=== PATIENT | female | born 1965 | race Caucasian/White ===

== ENCOUNTER 2016-10-27 12:26 | Observation (INO) | payer BC ==
--- NOTE | ~2016-10-27 | ST ---
Unit #: [id number] #: [id number] Patient: MARCO MOSQUEDA [id number] [address] [place], [place] [address] [id number] I MR#: [id number] NAME: MARCO MOQSUEDA : 1965 SEX: F STUDY DATE/TIME: UNIT: C5B ROOM: 550 STUDY DESCRIPTION: ECG portion of stress test Attending Physician: Cat Allison M.D. Primary Care Physician: Ant Carter M.D. CARDIOLOGY REPORT PROCEDURE PERFORMED ECG portion of nuclear stress test. INDICATION Chest discomfort. SUMMARY Patient underwent nuclear stress test. Patient's resting heart rate is 90 beats per minute, which increased to 122 beats per minute with Lexiscan infusion, representing 72% of the maximal age-predicated heart rate. Patient's resting blood pressure 131/79 mmHg, which increased to 176/84 mmHg with Lexiscan infusion. Patient's resting ECG shows normal sinus rhythm with isolated PVC. Patient's stress ECG shows sinus tachycardia with preserved ST segments. There is no ventricular or supraventricular ectopy noted with Lexiscan infusion. There are no pauses noted. CONCLUSIONS 1. Negative ECG portion of the Lexiscan study for ischemia. 2. Perfusion imaging to be dictated separately. NOTE: Patient initially tried to exercise, but treadmill Cardiolite stress test was changed to Lexiscan, as patient got fatigued. The treadmill portion is dictated below. Patient's resting blood pressure was 131/79 mmHg. I do not have the peak blood pressure reading during exercise. Patient's heart rate was 76 beats per minute. Patient's resting ECG shows isolated PVCs. With walking on Carl treadmill, patient exercised up to 4 minutes and 28 seconds, and the test was stopped. Patient's ECG shows sinus tachycardia with preserved ST segments. There was no ventricular or supraventricular ectopy noted at that time. Patient achieved 79% of the maximum age-predicted heart rate with exercise. Subsequently, the test was changed to Lexiscan infusion as has been dictated above. CONCLUSION 1. Poor exercise tolerance. 2. Submaximal treadmill Cardiolite stress test. Therefore, changed to Lexiscan. Do not have the blood pressure reading post exercise to comment on the hemodynamic response to exercise. Unit #: [id number] #: [id number] Patient: MARCO MOSQUEDA Dictated by... Tobias Christopher/mark TD: 10/28/2016 15:02 JOB #: [id number] CARDIOLOGY REPORT Page 1 of 1 X MARIAM GONZALES MD CARDIOLOGY REPORT
--- NOTE | ~2016-10-27 | DS ---
Unit #: [id number] #: [id number] Patient: MARCO MOSQUEDA [id number] [address] [place], [place] [address] [id number] I MR#: [id number] NAME: MARCO MOSQUEDA ROOM: 550 Age: 51 Sex: F Admission Date: 10/27/2016 : 1965 Discharge Date: 10/28/2016 Attending Physician: Cat Allison M.D. Primary Care Physician: Ant Carter M.D. DISCHARGE SUMMARY ADMISSION DIAGNOSES 1. Chest discomfort. 2. Dyslipidemia. 3. Probable obstructive sleep apnea. 4. Obesity. 5. ETOH abuse. Ms. Mosqueda is a 51-year-old white female who was admitted with chest discomfort. Myocardial infarction was ruled out with five negative troponins. Cholesterol profile was obtained. Total cholesterol 171, triglycerides 427, HDL 34, LDL not obtained. She underwent Cardiolite stress testing which was negative for ischemia. She also underwent ultrasound of the gallbladder which was normal. She had normal sinus rhythm through the night. She had some pauses noted on the monitor as well as observed apnea. Dr. Fernandes consulted, saw the patient prior to discharge and she will follow up with him in two weeks. She will follow up with her primary care physician in two weeks. She has been discharged home on her home medications of Flonase Allergy spray, two sprays daily, Claritin 10 mg daily. She has received a prescription for Protonix 40 mg daily and fish oil 2 g twice daily. Her primary care physician is Dr. Ant Carter. Dictated by... Loree Vidal A.P.R.N. for Minor Flowers M.D. ARNOLD/trung TD: 10/30/2016 10:21 JOB #: [id number] DISCHARGE SUMMARY Page 1 of 1 X X DISCHARGE SUMMARY
--- NOTE | ~2016-10-27 | HP ---
Unit #: [id number] #: [id number] Patient: MARCO MOSQUEDA [id number] [address] [place], [place] [address] [id number] I MR#: [id number] NAME: MARCO MOSQUEDA ROOM: 550 Age: 51 Sex: F Admission Date: 10/27/2016 : 1965 Attending Physician: Cat Allison M.D. Primary Care Physician: Ant Carter M.D. HISTORY AND PHYSICAL HISTORY OF PRESENT ILLNESS This is a 51-year-old white female who presented to the emergency room for evaluation of chest pain. She states on Sunday, after she ate breakfast and swallowed her food, she began to have substernal chest tightness with pressure that was nonradiating to the neck, arm or jaw. She had no associated dyspnea, diaphoresis, nausea or vomiting. She felt that if she would burp it would make it feel better. However, belching made her chest pain worse. She had no alleviating factors. Every time she ate she had reoccurrence of chest pain. She states she is usually active without any symptoms. On Sunday she played with her grandchildren and walked around fairly often without chest pain. She is able to walk up and down stairs without symptoms. She denies a history of hypertension, hyperlipidemia or diabetes. She does have risk factors for ischemic heart disease that include nicotine abuse and family history of premature coronary artery disease. She had a regular treadmill test in 2007 which was normal. Presenting electrocardiogram shows no acute ischemic changes. Troponin was initially negative. PAST MEDICAL HISTORY 1. Exercise stress test 02/25/2008 showed no ischemia. 2. Obesity. 3. Binge ETOH use. 4. Nicotine abuse. PAST SURGICAL HISTORY 1. Hysterectomy. 2. Tubal ligation. 3. Removal of vaginal polyps. 4. Left arm surgery. 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 She smokes one to two packs of cigarettes daily since age 15. She smokes marijuana on occasion. She drinks on Sunday and Sunday six beers a night. FAMILY HISTORY Father is currently living and well and in his 70s. When he was in his 50s he had a stent placed with subsequent coronary artery bypass surgery. Mother has hypertension, but no coronary artery disease. ALLERGIES Ibuprofen and neomycin. The patient has been told not to take aspirin because of her reaction to ibuprofen. Unit #: [id number] #: [id number] Patient: MARCO MOSQUEDA HOME MEDICATIONS 1. Loratadine 10 mg daily. 2. Flonase 2 sprays each nostril daily. REVIEW OF SYSTEMS CONSTITUTIONAL: Negative for fever or chills. Reports no weight gain or weight loss. HEENT: Negative for headache or dizziness. Reports difficulty with swallowing. CARDIOVASCULAR: Has chest pain described in history of present illness. Denies palpitations. No paroxysmal nocturnal dyspnea or orthopnea. No syncope or near syncope. RESPIRATORY: Negative for dyspnea, cough or hemoptysis. GASTROINTESTINAL: Positive for abdominal discomfort. No nausea or vomiting. EXTREMITIES: Negative for lower extremity edema. PHYSICAL EXAMINATION GENERAL: This is a pleasant, obese, 51-year-old white female who is in no acute respiratory distress. VITALS: Blood pressure 125/90, heart rate 80, temperature 97.8, BMI 46. NECK: Trachea midline. No thyromegaly or lymphadenopathy. No jugular venous distension. LUNGS: Diminished breath sounds without rales, rhonchi or wheezes. HEART: S1 and S2. No murmurs, rubs or clicks. Regular rate and rhythm. ABDOMEN: Soft, nontender, with bowel sounds present. EXTREMITIES: Without leg edema. SKIN: Warm and dry. NEUROLOGIC: Awake, alert and oriented. There is no focal weakness. DIAGNOSTIC STUDIES IMAGING: Chest x-ray shows no active disease. LABORATORY: Glucose 131, BUN 14, creatinine 0.8, sodium 138, potassium 4.0, troponin less than 0.05 times 2. White blood cell count 7.1, hemoglobin 14.3, hematocrit 43.7, platelets 217. CARDIOVASCULAR: Electrocardiogram shows normal sinus rhythm with occasional premature ventricular complex. No acute findings. ASSESSMENT 1. Atypical chest pain. 2. Dysphagia. 3. Abdominal pain, questionable etiology. 4. Obesity. 5. Nicotine abuse. 6. ETOH abuse. PLAN 1. The patient's chest pain is atypical for significant ischemic heart disease. She does have minimal risk factors. Will proceed with exercise Cardiolite stress test if repeat troponin is negative. 2. Will have GI to see the patient for dysphagia as an outpatient. 3. Obtain ultrasound of the gallbladder to rule out gallbladder disease. 4. Encourage the patient to quit smoking and drinking. 5. If stress test is normal, the patient will be discharged home. Unit #: [id number] #: [id number] Patient: MARCO MOSQUEDA Dictated by Gera Neves A.P.R.N. for Cat Allison M.D. AEP/gz TD: 10/27/2016 16:02 JOB #: [id number] CC: [facility] Ant Carter M.D. HISTORY AND PHYSICAL Page 1 of 1 X Gera Neves APRN X HISTORY AND PHYSICAL
--- NOTE | ~2016-10-27 | TH ---
Unit #: [id number] #: [id number] Patient: MARCO MOSQUEDA [id number] [address] [address] [id number] I MR#: [id number] NAME: MARCO MOSQUEDA : 1965 SEX: F STUDY DATE/TIME: 10/28/2016 UNIT: C5B ROOM: 550 STUDY DESCRIPTION: Attending Physician: Cat Allison M.D. Primary Care Physician: Ant Carter M.D. CARDIOLOGY REPORT EXAM Nuclear stress test. INDICATION Chest discomfort. SUMMARY Patient underwent nuclear stress test. She received a resting dose of 11.37 mCi and a stress dose of 31.1 mCi. On gated imaging, patient appears to have normal wall motion with a preserved ejection fraction. Patient's LVEF is 68%. On perfusion imaging, comparing rest and stress images, there appears to be no reversible perfusion defects. CONCLUSION 1. No obvious ischemia. 2. Preserved ejection fraction. 3. ECG portion to be dictated separately. 1. Dictated by... Mariam Gonzales M.D. MO/am TD: 10/29/2016 21:28 JOB #: [id number] CARDIOLOGY REPORT Page 1 of 1 X MARIAM GONZALES MD CARDIOLOGY REPORT
--- NOTE | ~2016-10-27 | BMI ---
[facility] Nutrition Therapy DATE: 10/28/16 Patient: MARCO MOSQUEDA Physician: ATTPRE Address: [address] [place] [address] Room/Bed: [address] [place] [address], Zip: [place] [address] Admit Date: 10/27/16 Date of : [birth year] Height: 5 6 Weight: 159 72.2 HIGH BMI NOTE: DX: PATIENT IS A 51 Y/O FEMALE ADMITTED FOR CHEST PAIN ANTHROPOMETRICS: HT: 66", WT: 285#, BMI: 46 DIET: ADMITTED ON HEART HEALHTY, CURRENTLY NPO RECOMMENDATIONS: ONCE MEDICALLY FEASIBLE RECOMMEND CONTINUING HEART HEALTHY DIET TO PROMOTE A STEADY WEIGHT LOSS TOWARDS A HEALTHY BMI OF 19-25 Respectfully, JANIA CONTEH RD, LD [facility] cc: client file
--- NOTE | ~2016-10-27 | US67 ---
[facility] A Service of [facility] RADIOLOGY TEXT RESULTS PATIENT: MARCO MOSQUEDA LOCATION: B 550-01 : [birth year] UNIT #: [id number] AGE: [address]: Cat Allison MD SEX: F ORDER DR: [id number] [facility] [address] [facility] [place], [place] [address] [id number] I MR#: [id number] Acc #: [id number] NAME: MARCO MOSQUEDA : 1965 SEX: F STUDY DATE/TIME: 10/28/2016 8:33 UNIT: [facility] ROOM: [facility] STUDY DESCRIPTION: US Gallbladder Attending Physician: Cat Allison M.D. Ordering Physician: Cat Allison M.D. Primary Care Physician: Ant Carter M.D. MEDICAL IMAGING REPORT This report is preliminary unless electronic signature is present EXAM Gallbladder ultrasound study dated 10/28/2016 COMPARISON Abdominal ultrasound study dated 02/10/2008. HISTORY Discomfort when eating along with chest pain since Sunday. FINDINGS Structural patel-scale analysis, color-Doppler flow analysis of the right upper quadrant of the abdomen was performed as per the protocol. Visualized portions of the pancreas does not demonstrate any significant abnormality. Entire pancreas is not seen. Liver measures 18.6 cm in greatest length and is slightly enlarged. There is diffuse increased echotexture of the liver. No intrahepatic biliary ductal dilatation or discrete well-defined mass is seen. Gallbladder is within normal limits. No wall thickening or gallstones. Gallbladder wall measures 2.5 mm. Common duct measures 2 mm. The anterior aspect of the tqm-fc-bblepjdf right kidney there is a 2.1 x 3.2 x 3.4 cm ISO to slightly hypoechoic lesion. No vascular flow is noted within it. The right kidney measures 10.8 cm in greatest length. No hydronephrosis or nephrolithiasis. IMPRESSION 1. There is mild hepatomegaly with diffuse increased echotexture suggestive of diffuse hepatic steatosis. It was also noted on the prior study from 2007. 2. There is an iso- to slightly hypoechoic exophytic mass in the anterior aspect of the cdp-iu-dtpncxmf right kidney. Given the lack of flow within it, it is probably not a solid mass. In this region, a cyst was noted on the prior ultrasound measuring 2.2 x 2.3 cm. Over the last 9 years it is slightly increased in size and probably STS. [facility] A Service of [facility] RADIOLOGY TEXT RESULTS PATIENT: MARCO MOSQUEDA LOCATION: [place] [address] : [birth year] UNIT #: [id number] AGE: [address]: Cat Allison MD SEX: F ORDER DR: hemorrhaged within it or it contains proteinaceous components. It is probably a complex cyst. 3. No cholelithiasis or acute cholecystitis. Dictated by... Bob Almanza M.D. THIS IS AN ELECTRONICALLY VERIFIED REPORT Bob Almanza M.D. at 10/30/2016 2:59 PM CPR/aa TD: 10/28/2016 12:23 JOB #: [id number] MEDICAL IMAGING REPORT Page 1 of 1 COPY
--- NOTE | ~2016-10-27 | EKG ---
PATIENT: MARCO MOSQUEDA UNIT #: [id number] Ventricular Rate: 73 BPM Atrial Rate: 73 BPM P-R Interval: 178 ms QRS Duration: 92 ms Q-T Interval: 394 ms QTC Calculation(Bezet): 434 ms P [place]: 46 degrees Calculated R [place]: -31 degrees Calculated T [place]: 59 degrees Diagnosis Line: Normal sinus rhythm Diagnosis Line: Left axis deviation Diagnosis Line: Abnormal ECG Diagnosis Line: When compared with ECG of 27-OCT-2016 11:19, Diagnosis Line: Premature ventricular complexes are no longer Diagnosis Line: Present Diagnosis Line: Confirmed by LUIS ANGEL MC MD ([id number]) on Diagnosis Line: 10/29/2016 8:49:01 AM INTERPRETING : MAMIE
--- NOTE | ~2016-10-27 | CR63 ---
[facility] A Service of [facility] RADIOLOGY TEXT RESULTS PATIENT: MARCO MOSQUEDA LOCATION: [facility] : 63 UNIT #: [id number] AGE: [address]: Rahul Reyes DO SEX: F ORDER DR: [id number] [facility] [address] [place], [place] [address] [id number] E MR#: [id number] Acc #: [id number] NAME: MARCO MOSQUEDA : 1965 SEX: F STUDY DATE/TIME: 10/27/2016 11:30 UNIT: [facility] ROOM: STUDY DESCRIPTION: CR Chest 2 View Attending Physician: Rahul Reyes D.O. Ordering Physician: Rahul Reyes D.O. Primary Care Physician: Ant Carter M.D. MEDICAL IMAGING REPORT This report is preliminary unless electronic signature is present EXAM Chest 2 views 10/27/2016 1130 hours HISTORY 51-year-old woman with 3-day history of chest pain and shortness of air, history of allergies. COMPARISON None. FINDINGS Upright PA and lateral views of the chest demonstrate normal heart size and a mildly tortuous aorta. The pulmonary vascularity is normal. The lungs are clear of acute densities. Benign calcified granulomata are present. There is no effusion. IMPRESSION Normal heart size with mildly tortuous aorta. Benign calcified granulomatous changes are present. The lungs are clear of acute densities. There is no effusion or pneumothorax. Dictated by... Ashwini Lara M.D. THIS IS AN ELECTRONICALLY VERIFIED REPORT Ashwini Lara M.D. at 10/27/2016 2:30 PM PATI/eloisa TD: 10/27/2016 13:20 JOB #: [id number] MEDICAL IMAGING REPORT Page 1 of 1 COPY
--- NOTE | ~2016-10-27 | EKG ---
PATIENT: MARCO MOSQUEDA UNIT #: [id number] Ventricular Rate: 77 BPM Atrial Rate: 77 BPM P-R Interval: 162 ms QRS Duration: 94 ms Q-T Interval: 394 ms QTC Calculation(Bezet): 445 ms P [place]: 41 degrees Calculated R [place]: -33 degrees Calculated T [place]: 37 degrees Diagnosis Line: Sinus rhythm with occasional Premature ventricular Diagnosis Line: complexes Diagnosis Line: Left axis deviation Diagnosis Line: Moderate voltage criteria for LVH, may be normal Diagnosis Line: variant Diagnosis Line: Abnormal ECG Diagnosis Line: Diagnosis Line: Confirmed by LUIS ANGEL MC MD ([id number]) on Diagnosis Line: 10/27/2016 11:25:19 PM INTERPRETING MD: MAMIE
[2016-10-27 11:34] LABS: BASOPHIL% 0.7 % (0-2.5); EOSINOPHIL# 0.1 X10e3 (0-0.7); EOSINOPHIL% 1.7 % (0.0-7.0); HEMATOCRIT 43.7 % (35.0-45.0); HEMOGLOBIN 14.3 gm/dL (12.0-16.0); LYMPHOCYTE# 2.2 X10e3 (1.0-3.5); LYMPHOCYTE% 31.3 % (17.0-45.0); MEAN CELL VOLUME 90.5 FL (83-96); MEAN CORPUSCULAR HEMOGLOBIN 29.6 PG (28-34); MEAN CORPUSCULAR HGB CONC 32.7 g/dL (30-36); MEAN PLATELET VOLUME 8.2 FL (6.5-11.5); MONOCYTE# 0.4 X10e3 (0-1.0); MONOCYTE% 5.8 % (3.0-12.0); NEUTROPHIL# 4.3 X10e3 (1.5-7.1); NEUTROPHIL% 60.5 % (40-75); PLATELET COUNT 217 X10e3 (140-420); RED BLOOD COUNT 4.83 X10e (3.90-5.30); WHITE BLOOD COUNT 7.1 X10e3 (4.0-10.5)
[2016-10-27 11:36] LABS: POC - CKMB <1.0 ng/mL (0.0-7.9); POC - TROPONIN <0.05 ng/mL (<=0.05)
[2016-10-27 11:37] LABS: DIFF IND NO
[2016-10-27 11:54] LABS: INR 0.9; PARTIAL THROMBOPLASTIN TIME 26.1 SECONDS (23.5-31.3); PROTHROMBIN TIME (PATIENT) 9.8 SECONDS (9.6-11.5)
[2016-10-27 12:13] LABS: ALBUMIN SERUM 3.8 g/dL (3.5-5.0); ALKALINE PHOSPHATASE 56 U/L (32-92); ALT (SGPT) 16 U/L (10-40); AST (SGOT) 16 U/L (10-42); BILIRUBIN,TOTAL 0.4 mg/dL (0.2-2.0); BLOOD UREA NITROGEN 14 mg/dL (9-23); CALCIUM SERUM 9.2 mg/dL (8.4-10.2); CARBON DIOXIDE 30 mmol/L (22-31); CHLORIDE 103 mmol/L (100-111); CREATININE SERUM 0.8 mg/dL (0.6-1.4); GLOM FILT RATE Estimated 84.8 mL/min (>60); GLUCOSE FASTING 131 mg/dL (70-110); LIPASE 28 U/L (22-51); PROTEIN TOTAL SERUM 6.5 g/dL (6.0-8.3); SODIUM 138 mmol/L (135-145)
[2016-10-27 12:14] LABS: BILIRUBIN, DIRECT <0.1 mg/dL (0.0-0.2); BILIRUBIN,INDIRECT 0.3 mg/dL (0.0-0.9)
[~2016-10-27 12:26] MED LIST: CLARITIN10 M3 PO; FLONASE ALLERG9.9 ML; NEXIUM PO
[2016-10-27 13:11] LABS: POC - CKMB <1.0 ng/mL (0.0-7.9); POC - TROPONIN <0.05 ng/mL (<=0.05)
[2016-10-27] MEDS ORDERED: CLARITIN10 M3 PO (14:34)
[2016-10-27] MEDS ORDERED: FLONASE ALLERG9.9 ML (14:35)
[2016-10-27 21:12] LABS: CK TOTAL 34 IU/L (26-140)
[2016-10-28 01:34] LABS: CK TOTAL 39 IU/L (26-140)
[2016-10-28 01:37] LABS: CHOLESTEROL 171 mg/dL (0-200); HDL CHOLESTEROL 34 mg/dL (35-95)
[2016-10-28 01:43] LABS: TRIGLYCERIDES 427 mg/dL (10-160)
[2016-10-28 07:22] LABS: CK TOTAL 43 IU/L (26-140)
[2016-10-28] MEDS ORDERED: PROTONIX PO (15:06)
[2016-10-28] MEDS ORDERED: LOVAZA1 GM PO (15:11)
== END 2016-10-28 16:00 | disposition home or self-care (01) | DRG 313 ==
LOC: CED 12:26 → C5B 13:30
PROVIDERS: Emergency Medicine; Internal Medicine Cardiovascular Disease
DX: R07.89 Other chest pain (principal); E78.5 Hyperlipidemia, unspecified; E66.9 Obesity, unspecified; F10.10 Alcohol abuse, uncomplicated; F17.210 Nicotine dependence, cigarettes, uncomplicated; Z82.49 Family history of ischemic heart disease and other diseases of the circulatory system; R10.9 Unspecified abdominal pain; R13.10 Dysphagia, unspecified; Z88.1 Allergy status to other antibiotic agents; Z88.6 Allergy status to analgesic agent; Z90.710 Acquired absence of both cervix and uterus
CPT/HCPCS: 36415; 71020; 76705; 78452; 80048; 80061; 80076; 82550; 82553; 83690; 84484; 85025; 85610; 85730; 93005; 93017; 96372; 99285; A9500; G0378; J1650; J2785

== ENCOUNTER → 2017-03-02 | Outpatient (CLI) | payer BC ==
[~2017-03-02] MED LIST changes: +LOVAZA1 GM PO; +PROTONIX PO
--- NOTE | ~2017-03-02 | EKG ---
PATIENT: MARCO MOSQUEDA UNIT #: [id number] Ventricular Rate: 82 BPM Atrial Rate: 82 BPM P-R Interval: 156 ms QRS Duration: 94 ms Q-T Interval: 400 ms QTC Calculation(Bezet): 467 ms P [place]: 39 degrees Calculated R [place]: -33 degrees Calculated T [place]: 47 degrees Diagnosis Line: Sinus rhythm with occasional Premature ventricular Diagnosis Line: complexes Diagnosis Line: Left axis deviation Diagnosis Line: Minimal voltage criteria for LVH, may be normal Diagnosis Line: variant Diagnosis Line: Abnormal ECG Diagnosis Line: When compared with ECG of 28-OCT-2016 05:45, Diagnosis Line: Premature ventricular complexes are now Present Diagnosis Line: Confirmed by ELIAS NEWMAN MD ([id number]) on 03/05/2017 Diagnosis Line: 1:48:37 PM INTERPRETING MD: TRENT WARNER
[2017-03-02 10:55] LABS: BASOPHIL% 0.6 % (0-2.5); EOSINOPHIL# 0.1 X10e3 (0-0.7); EOSINOPHIL% 1.7 % (0.0-7.0); HEMOGLOBIN 14.6 gm/dL (12.0-16.0); LYMPHOCYTE# 1.9 X10e3 (1.0-3.5); LYMPHOCYTE% 26.3 % (17.0-45.0); MEAN CELL VOLUME 91.7 FL (83-96); MEAN CORPUSCULAR HEMOGLOBIN 31.2 PG (28-34); MEAN CORPUSCULAR HGB CONC 34.1 g/dL (30-36); MONOCYTE# 0.4 X10e3 (0-1.0); MONOCYTE% 5.4 % (3.0-12.0); NEUTROPHIL# 4.7 X10e3 (1.5-7.1); PLATELET COUNT 213 X10e3 (140-420); RED BLOOD COUNT 4.69 X10e (3.90-5.30); RED CELL DISTRIBUTION WIDTH 14.1 % (11.0-15.5); WHITE BLOOD COUNT 7.2 X10e3 (4.0-10.5)
[2017-03-02 10:56] LABS: DIFF IND NO
[2017-03-02 11:12] LABS: PARTIAL THROMBOPLASTIN TIME 27.6 SECONDS (23.5-31.3); PROTHROMBIN TIME (PATIENT) 10.7 SECONDS (10.0-11.7)
[2017-03-02 11:32] LABS: CALCIUM SERUM 9.3 mg/dL (8.4-10.2); CREATININE SERUM 0.8 mg/dL (0.6-1.4); GLOM FILT RATE Estimated 84.8 mL/min (>60); POTASSIUM 4.6 mmol/L (3.5-5.1)
== END | disposition home or self-care (01) ==
LOC: CLAB 10:01
PROVIDERS: Podiatrist
DX: Z01.818 Encounter for other preprocedural examination (principal); R94.31 Abnormal electrocardiogram [ECG] [EKG]; I49.3 Ventricular premature depolarization
CPT/HCPCS: 36415; 80048; 83036; 85025; 85610; 85730; 93005